=== PATIENT | female | born 1955 | race Caucasian/White ===

== ENCOUNTER 2023-08-12 10:00 | Outpatient (RCR) | payer MEDICARE, BC, SELFPAY ==
--- NOTE | 2023-02-27 15:13 | PT.OPEX ---
PT [place] Outpatient Eval PT [facility] Outpatient Eval Start: 02/26/23 13:20 Freq: Status: Active Protocol: Document 02/26/23 13:20 CLRossana (Rec: 02/26/23 13:23 CLK [id number]) E-signed By Delaney Diana PT Physical Therapy Outpatient Evaluation Insurance Information Recert Due Date 05/24/23 Insurance Name Medicare B,Blue Cross/Blue Shield Medical Diagnosis Stress Incontinence Treating Diagnosis Weak PFM Urinary Stress Incontinence ( cough, sneeze, laugh) Weakness of hip EXT/ABD/ER mm Subjective Subjective Leonie reports her primary concern is the little bit of urine that dribbles out with cough or sneeze. Otherwise, can hold her urine easily 2-3 hours. She drinks 50-60 oz of water per day, does not limit her water for any reason. She carries extra pads, wears 1/ Day. Rarely dry though. Exertion and up/down off the floor or lifting my grand kids I may use another pad. Just use small panty liner. Drinks 2 cups of coffee in the morning then no more during the day. Not much juice, some soda's. She works out 3-4X/Wk; an on-line aerobic class and on her own some floor exercises and treadmill (20-30 min) with an incline of 6% or more. Sleep ok, sometimes have insomnia but not regularly. Incontinent issues have been for maybe 5 years. She did have one child, delivery was vaginal. Very small tearing. Pain Comments Have had back surgery disc trimming 25 years ago at L4 or L5. No other surgeries. No real pain. Date of Last Physician Visit 01/02/23 Current Work Status Retired Precautions Treatment Precautions/Contraindications L4-L5 (not sure which) disc trimming many years ago, some arhtritis Weight Bearing Status Full Weight Bearing Therapy Limitations/Systems Review Vision Assessment Assessment/Impression 67 yo female with DX of Stress Urinary Incontinence. She presents with normal gait pattern, good balance of 10+ seconds isacc. She has good strength isacc LE, with the exception of Rt hip EXT/ABD/ER 4-/5. Pain free bridge. Weakness and reduced core strength, but she is able to complete a single leg bridge isacc (very hard Rt side). Tightness of isacc hamstrings, hip at 90 deg lacking 10 deg isacc full knee ext. Tightness of isacc hip IR 0-8 deg, but pain free. Good trunk AROM, but slightly reduced Lt SB when compared to Rt. No pain, but stiffness reported. Impaired isacc SIJ mobility, but only minimal reduction in PA movement. Hypertonicity of isacc lumbar psps, glut med/max and piriformis. She will benefit from continued assessment of PFM (internal to be completed next visit), progressive stretch/strength HEP and core program for pelvic stability and increased PFM strength. Thank you for this referral. Plan of Care Rehabilitation Potential Good Physical Therapy Goals In 4-6 PT visits, Leonie will be able to report: 1. Increased PFM strength by at least 20% 2. IND in proper execution of entire HEP with emphasis on reps, HOLD endurance and alignment, breathing In 8-10 PT visits, Leonie will be able to report: 1. Increased Rt hip strength to at least 4/5 2. Dry panty liner at least 2 days per week. 3. Report of reduced leakage by at least 30% Coordination/Communication With Referral Source Treatment Plan/Direct Interventions Ice/Cold/Vasopneumatic,Joint Mobilization,Manual Therapy, Neuromuscular Re-ed,Self-Care/ Home Management,Therapeutic Activities,Therapeutic Exercises Frequency/Duration 1X/Wk for 10 visits Patient Will Be Discharged From Therapy Completion of LTG(s),Skills Plateau,Independent w/HEP, Independently Progressing Evaluation Billing Untimed Code Treatment Minutes 32 Complexity Moderate Certification Information Initial Certification Date 02/27/23 Ending Certification Date 05/24/23 Provider Signature Shows Agreement With POC & Medical Necessity Physician Signature & Date Requested Please Sign/Date Here Physician Comment/Change : Physician NPI Number #
--- NOTE | 2023-07-23 11:12 | PT.OPDNX ---
PT [place] Outpatient Daily Note PT [facility] Outpatient Daily Note Start: 02/26/23 13:20 Freq: Status: Active Protocol: Document 07/23/23 07:02 CHRISTY (Rec: 07/23/23 07:08 CHRISTY [id number]) E-signed By Delaney Diana, PT PT OP Daily Progress Note Visit Information Note Type Daily Note,Recert/Progress Note Visit Number [id number] Insurance Information Recert Due Date 05/24/23 Insurance Name Medicare B,Blue Cross/Blue Shield Medical Diagnosis Stress Incontinence Treating Diagnosis Weak PFM Urinary Stress Incontinence ( cough, sneeze, laugh) Weakness of hip EXT/ABD/ER mm Referring MD Dr Shawanda Porter Subjective Subjective Driving was surprising ok, as long as I was the passenger vs driving (3 week vacation to [place]), so I was able to wiggle around a bit more. Still wear a very slim pad, feel more for cleanliness and hygene. Most days it is dry. No physical exertion lift/ cough/sneeze/laugh causes leakage anymore. Pain Comments Have had back surgery disc trimming 25 years ago at L4 or L5. No other surgeries. No real pain. Preferred Name Leonie Precautions Treatment Precautions/Contraindications L4-L5 (not sure which) disc trimming many years ago, some arhtritis Weight Bearing Status Full Weight Bearing Objective Patient Instructed in Risks/Benefits Yes Therapeutic Exercise Therapeutic Exercise: To Restore Educated in and completed/ Functional Status given HO for HEP: -MET for ilial rotation. Educated in how to know which side is lower/which to push with -Shot Gun X 2 positions for ilial correction. *prior HEP of: -deep breath, exhale and combine cough with kegel. Try in standing. -isacc shoulder ER scapular retraction -accupressure spots on temporal bone inferior to visual orbits and lateral to nasal passage, educated in how to apply pressure to promote sinus drainage. -supine (bent knee) scissors for core. Elongate legs as she gets stronger -standing bent elbow rowing, staggered feet and proper breathing. BTB -standing straight arm rowing, staggered feet and proper breathing. BTB -prone on elbows and reverse position for MB (cobra) -sdly open arms like a book for rib mobility -sdly clam with band -sdly reverse clam with band -supine Dbl leg lower/raise -breathing with transitional movements, lifting/exertion -supine hook lying hip ABD with BTB, breathing and kegel -sdly reverse clam with GTB -seated hamstring stretch -kegel 2 second contraction and HOLD duration contraction Manual Therapy Techniques Manual Therapy Minutes (minutes) 34 Manual Therapy Techniques (previously Completed an internal PFM assessment with score of: 2/7/6//5. Also completed breathing with small cough at the end to increase PFM contraction. Breathing and hip ABD combo to increase PFM usage. A very tight band of mm at mid perineum, but no pain with palpation) -prone for grade 3 rib PA mobs T4-T11 isacc. Mod+ pressure STM and mm bending technique at psps here as well. DTM at lumbar psps, glut med/max/ piriformis isacc. Grade 2-3 spring mobs at superior and inferior sacral angles (moving better). TPR at glut med and piriformis isacc. Previously given tennis balls for self TPR. TPR at isacc iliococcygeal ligaments. -supine AP mobs at isacc ilial ASIS angles. Still a bit immobile or the right, but much improved. No need for MET Self Care Management Training Self Care Management Training Educated in down training of relaxing jaw and Mooing to completely empty bladder. Also educated in brain/gym exercise of picking a letter in the alphabet and thinking of words that start with that letter, foods, animals, etc. Take your mind away from the situation and gain control. Disassociation. *given HO for education, education in anatomy and normal healthy bladder, voiding habits -Normal bladder -diet and bladder irritants Treatment Minutes Timed Code Treatment Minutes 34 Total Treatment Time 34 Billing Units Manual Therapy Units 2 Assessment/Impression Assessment/Impression Piriformis isacc has really calmed down to near neutral tone. However, pain has isolated to isacc iliococcygeal ligaments. Advised to use self TPR with tennis balls her as well as use of home massage gun (assisted by her ). Reports excellent improvement in bladder control. No incidents of leakage in the past 6+ weeks, still uses panty liners more out of habit and hygene. Dry most days. Nearing normal mobility through MB vert/ribs now noted with grade 3 mobs and skilled treatment. She cont to progress well towards her goals. Plan of Care Physical Therapy Goals In 4-6 PT visits, Leonie will be able to report: 1. Increased PFM strength by at least 20% 2. IND in proper execution of entire HEP with emphasis on reps, HOLD endurance and alignment, breathing In 8-10 PT visits, Leonie will be able to report: 1. Increased Rt hip strength to at least 4/5 2. Dry panty liner at least 2 days per week. 3. Report of reduced leakage by at least 30% Daily Plan of Care Continue per POC Daily Plan of Care Comments Internal PFM assessment Progressive pelvic and core stability ex Cough with kegel lifting with breathing Recertification Information Initial Certification Date 02/27/23 Recertification Start Date 07/23/23 Recertification Due Date 09/21/23 Reasons to Continue Skilled Therapy Client returns this date having not been seen for about 4 weeks, on a trip to [place] (driving/sitting). She cont to report MBP with prolonged waist height work, and irritation at piriformis isacc. Good symptom reduction, but trigger point sensetive at isacc piriformis, improved SIJ mobility PA direction, still a bit sticky with AP movement plane Rehabilitation Potential Very good Continued Plan of Care and Interventions possibly 2-4 more visits, one time per week Provider Signature Shows Agreement With POC & Medical Necessity Physician Comment/Change Comment or Changes Physician NPI Number #
== END 2023-12-10 23:59 | disposition home or self-care (01) ==
PROVIDERS: PCP Family Medicine; Visit Provider Family Medicine
DX: N39.3 Stress incontinence (female) (male) (principal); R29.898 Other symptoms and signs involving the musculoskeletal system; M62.89 Other specified disorders of muscle; Z51.89 Encounter for other specified aftercare
CPT/HCPCS: 97110; 97140; 97162; 97535